=== PATIENT | male | born 1950 | race American Indian/Alaskan Native ===

== ENCOUNTER 2018-01-08 13:32 | Emergency (ER) | payer MEDICARE ==
[2018-01-08] MEDS ORDERED: CATAPRES PO ONE (15:53)
--- NOTE | 2018-01-08 15:55 | Emergency Department Report ---
Blank Doc - Documentation Documentation: Patient is a 67-year-old -[place] male who is presenting with hypertension. Patient states he went to urgent care today because of cough cold congestion for 3 days with a mild sore throat. Patient states the cough is productive of clear yellow sputum. When patient was there was noted that his blood pressure was 220 systolic. Patient told the urgent care physicians that he felt fine and was not have any chest pain shortness of breath fevers chills decreased urination or headache at this time but they rushed him over to the emergency department for evaluation of hypertension. Patient is just continuing to state that he does have some mild cold symptoms but does not feel any symptoms related to elevated blood pressure.
[2018-01-08 17:06] VITALS: BP 154/86
--- NOTE | 2018-01-08 17:23 | Emergency Department Report ---
ED General Adult HPI - General Chief complaint: High BP Stated complaint: HTN Time Seen by Provider: 01/08/18 15:25 Source: patient Mode of arrival: Ambulatory Limitations: No Limitations - History of Present Illness Initial comments: Patient is a 67-year-old -[place] male who is presenting with hypertension. Patient states he went to urgent care today because of cough cold congestion for 3 days with a mild sore throat. Patient states the cough is productive of clear yellow sputum. When patient was there was noted that his blood pressure was 220 systolic. Patient told the urgent care physicians that he felt fine and was not have any chest pain shortness of breath fevers chills decreased urination or headache at this time but they rushed him over to the emergency department for evaluation of hypertension. Patient is just continuing to state that he does have some mild cold symptoms but does not feel any symptoms related to elevated blood pressure. - Related Data Previous Rx's Medication Instructions Recorded Last Taken Type ALBUTEROL Inhaler [ProAir HFA 2 puff IH QID PRN #1 inhalation 01/08/18 Unknown Rx Inhaler] HYDROcodone/ACETAMINOPHEN 7.5 ml PO Q4HR #120 solution 01/08/18 Unknown Rx [Hydrocodon-Acetamin 7.5-325/15] predniSONE [Deltasone] 20 mg PO QDAY #5 tab 01/08/18 Unknown Rx Allergies Allergy/AdvReac Type Severity Reaction Status Date / Time No Known Allergies Allergy Unverified 01/08/18 13:35 ED Review of Systems ROS: Stated complaint: HTN Other details as noted in HPI Comment: All other systems reviewed and negative ED Past Medical Hx - Past Medical History Previous Medical History?: Yes Hx Hypertension: Yes Additional medical history: high cholesterol - Surgical History Past Surgical History?: No - Social History Smoking Status: Never Smoker Substance Use Type: Alcohol, Prescribed - Medications Home Medications: Home Medications Medication Instructions Recorded Confirmed Last Taken Type ALBUTEROL Inhaler [ProAir HFA 2 puff IH QID PRN #1 inhalation 01/08/18 Unknown Rx Inhaler] HYDROcodone/ACETAMINOPHEN 7.5 ml PO Q4HR #120 solution 01/08/18 Unknown Rx [Hydrocodon-Acetamin 7.5-325/15] predniSONE [Deltasone] 20 mg PO QDAY #5 tab 01/08/18 Unknown Rx ED Physical Exam - General Limitations: No Limitations General appearance: alert, in no apparent distress - Head Head exam: Present: atraumatic, normocephalic - Eye Eye exam: Present: normal appearance - ENT ENT exam: Present: mucous membranes moist - Neck Neck exam: Present: normal inspection - Respiratory Respiratory exam: Present: normal lung sounds bilaterally. Absent: respiratory distress - Cardiovascular Cardiovascular Exam: Present: regular rate, normal rhythm. Absent: systolic murmur, diastolic murmur, rubs, gallop - GI/Abdominal GI/Abdominal exam: Present: soft, normal bowel sounds - Rectal Rectal exam: Present: deferred - Extremities Exam Extremities exam: Present: normal inspection - Back Exam Back exam: Present: normal inspection - Neurological Exam Neurological exam: Present: alert, oriented X3 - Psychiatric Psychiatric exam: Present: normal affect, normal mood - Skin Skin exam: Present: warm, dry, intact, normal color. Absent: rash ED Course Vital Signs 01/08/18 01/08/18 13:37 17:06 Temperature 97.8 F Pulse Rate 74 69 Respiratory 18 Rate Blood Pressure 186/90 Blood Pressure 154/86 [Left] O2 Sat by Pulse 98 Oximetry ED Medical Decision Making - Medical Decision Making Patient's blood pressure did respond nicely to Catapres. Patient is to follow- up with his primary care physician Dr. Rogers tomorrow for potential adjustments of his meds. The patient's chest x-ray was within normal limits A replaced on a short course of steroids and albuterol inhaler. Critical care attestation.: If time is entered above; I have spent that time in minutes in the direct care of this critically ill patient, excluding procedure time. ED Disposition Clinical Impression: Upper respiratory infection, Hypertensive urgency Disposition: DC-01 TO HOME OR SELFCARE Is pt being admited?: No Does the pt Need Aspirin: No Condition: Stable Instructions: Hypertension (ED), Upper Respiratory Infection (ED) Prescriptions: ALBUTEROL Inhaler [ProAir HFA Inhaler] 2 puff IH QID PRN #1 inhalation PRN Reason: Shortness Of Breath HYDROcodone/ACETAMINOPHEN [Hydrocodon-Acetamin 7.5-325/15] 7.5 ml PO Q4HR #120 solution predniSONE [Deltasone] 20 mg PO QDAY #5 tab Referrals: PRIMARY CARE,MD [Primary Care Provider] - 3-5 Days
--- NOTE | 2018-01-08 17:33 | XRay Report ---
FINAL REPORT EXAM: XR CHEST ROUTINE 2V HISTORY: productive cough TECHNIQUE: Two view chest PA and lateral PRIORS: None. FINDINGS: Cardiac and mediastinal contours are unremarkable. No focal pulmonary infiltrate is identified. No pleural fluid collection seen. Pulmonary vasculature is unremarkable. IMPRESSION: Negative two-view chest
== END 2018-01-08 17:42 | disposition home or self-care (01) ==
LOC: ED 13:32
DX: J06.9 Acute upper respiratory infection, unspecified (principal); I10 Essential (primary) hypertension; E78.00 Pure hypercholesterolemia, unspecified
CPT/HCPCS: 71046; 99283